=== PATIENT | male | born 1975 | race Caucasian/White ===

== ENCOUNTER 2019-06-26 12:16 | Inpatient (IN) | payer MEDICAID ==
[~2019-06-26] VITALS: Ht 170.2 cm; Wt 78.9 kg
[2019-06-26 12:18] VITALS: BP 127/73
--- NOTE | 2019-06-26 12:18 | NUR ---
PATIENT WHEELCHAIR ASSISTED TO BED 10.
[2019-06-26] MEDS ORDERED: METF500T2 PO (12:32)
--- NOTE | 2019-06-26 12:36 | NUR ---
DO JOSUÉ AT BEDSIDE
--- NOTE | 2019-06-26 12:43 | NUR ---
BIB FAMILY FROM HOME C/O ALOC, PER FAMILY PT HAS BEEN SICK WITH COLD SYMPTOMS X1 WEEK, WOKE UP THIS AM, ALTERTED, HOT TO TOUCH, NOT RESPONDING VERBALLY AT THIS TIME. BS 331 MD AWARE HX: DM RX: METFORMIN [place] DOSE OR FREQUENCY
[2019-06-26] MEDS ORDERED: IBUP-2213 PO (12:46)
[2019-06-26] MEDS ORDERED: NACL 0.9% 1,000 ML IV ONE (12:50)
[2019-06-26] MEDS ORDERED: VANCOMYCIN 1,000 MG in DEXTROSE 5% 250 ML IV ONE (12:50)
[2019-06-26] MEDS ORDERED: KETOROLAC 30 MG/ML VIAL IVP ONE (12:55)
--- NOTE | 2019-06-26 13:37 | NUR ---
PT LAYING IN BED, RR EVEN AND UNLABORED. TEMP 101, HR 105, VS NOTED, COOLING MEASURES INITIATED. PT LAYING WITH EYES CLOSED WITH FACIAL GRIMACING, MEDS ADMINISTERED ORDERED. ALL NEEDS MET AT THIS TIME.
[2019-06-26 13:47] LABS: BASOPHILS % (AUTO) 0.3 % (0.0-2.0); HEMATOCRIT 45.9 % (36-52); HEMOGLOBIN 15.5 g/dL (12.0-18.0); LYMPHOCYTES # (AUTO) 0.5 K/uL (2.0-11.5); LYMPHOCYTES % (AUTO) 10.6 % (20.5-51.1); MEAN CORPUSCULAR HEMOGLOBIN 31 pg (27-31); MEAN CORPUSCULAR HGB CONC 34 g/dL (33-37); MEAN CORPUSCULAR VOLUME 90.8 fL (80-94); MONOCYTES # (AUTO) 0.6 K/uL (0.8-1.0); MONOCYTES % (AUTO) 10.9 % (1.7-9.3); NEUTROPHILS % (AUTO) 78.2 % (42.2-75.2); PLATELET COUNT (AUTO) 157 K/uL (140-450); RED BLOOD CELL COUNT(AUTO) 5.05 MIL/uL (4.20-6.10); RED CELL DISTRIBUTION WIDTH 12.9 % (11.6-13.7); WHITE BLOOD COUNT (AUTO) 5.2 K/uL (4.8-10.8)
[2019-06-26 13:51] LABS: ANION GAP 24.5 (8-16); CARBON DIOXIDE 19.3 mmol/L (21-32); CHLORIDE 92 mmol/L (98-107); CREATININE 0.7 mg/dL (0.7-1.3); GFR ARICAN-AMERICAN 157 mL/min (>90); GLUCOSE 316 mg/dL (74-106); POTASSIUM 4.8 mmol/L (3.5-5.1); SODIUM SERUM 131 mmol/L (136-145); UREA NITROGEN, BLOOD 11 mg/dL (7-18)
[2019-06-26 13:58] LABS: ALBUMIN 3.9 g/dL (3.4-5.0); ASPARTATE AMINOTRANSFERASE 42 U/L (15-37); TOTAL BILIRUBIN 0.7 mg/dL (0.0-1.0)
[2019-06-26 13:59] LABS: ACETAMINOPHEN < 0.5 ug/ml (10-30); SALICYLATE < 2.8 mg/dL (2.8-20.0)
--- NOTE | 2019-06-26 14:05 | NUR ---
FLU (+)A, (-)B PER LAB NOTIFIED
[2019-06-26] MEDS ORDERED: OSELTAMIVIR PHOSPHATE 75 MG CAP PO ONE (14:30)
--- NOTE | 2019-06-26 14:45 | NUR ---
PT ADMITTED FROM ED. ARRIVED ON GURNEY AND SAFELY TRANSFERRED TO BED. RESPIRATIONS EVEN AND UNLABORED WITH NO SOB OR RESPIRATORY DISTRESS. IV 18G SITES IN LEFT AND RIGHT FA ARE CLEAN, DRY, AND INTACT. SKIN WARM AND DRY TO TOUCH. MRSA SWAB PERFORMED AND SENT TO LAB. ID BAND PLACED. PT CHANGED INTO YELLOW GOWN AND YELLOW SOCKS. APPROPRIATE SIGNS ARE PLACED. SAFETY MEASURES IN PLACE. WILL CONTINUE TO MONITOR.
[2019-06-26] MEDS ORDERED: MORPHINE SULFATE 2 MG/ML SYR IVP PRN (15:30)
[2019-06-26] MEDS ORDERED: NACL 0.9% 1,000 ML IV SCH (15:30)
[2019-06-26] MEDS ORDERED: ACETAMINOPHEN 325 MG TAB PO PRN (15:30)
[2019-06-26] MEDS ORDERED: HYDROcodone/APAP 5/325 MG 1 TAB TAB PO PRN (15:30)
[2019-06-26] MEDS ORDERED: ALBUTEROL SULFATE/IPRATROPIU 3 ML SOL IH PRN (15:30)
[2019-06-26] MEDS ORDERED: DOCUSATE SODIUM 100 MG GELCAP PO PRN (15:30)
[2019-06-26] MEDS ORDERED: DEXTROSE 50% 50 ML SYR IVP PRN (15:30)
[2019-06-26] MEDS ORDERED: ONDANSETRON 4 MG/2 ML VIAL IM/IVP PRN (15:30)
--- NOTE | 2019-06-26 15:45 | NUR ---
Patient will be admitted to care of Dr Brasher. Admited to tele room 116. Belongings list completed. Report to PARESH Watson.
[2019-06-26 16:16] LABS: MAGNESIUM 1.8 mg/dL (1.8-2.4); PHOSPHORUS 2.7 mg/dL (2.5-4.9); THYROID STIMULATING HORMONE 0.44 uIU/mL (0.34-3.74)
[2019-06-26] MEDS: BLOOD GLUCOSE MONITORING 1 DEV DEV FS SCH ×2 (16:30→21:14)
[2019-06-26 16:40] LABS: PROTHROMBIN TIME 9.7 secs (10.8-13.4)
--- NOTE | 2019-06-26 16:50 | NUR ---
PT RESTING IN BED WITH FAMILY AT BEDSIDE. RESPIRATIONS EVEN AND UNLABORED WITH NO SOB OR RESPIRATORY DISTRESS WHILE ON 3L NC. SKIN WARM AND DRY TO TOUCH. SAFETY MEASURES IN PLACE. WILL CONTINUE TO MONITOR.
[2019-06-26] MEDS ORDERED: OSELTAMIVIR PHOSPHATE 75 MG CAP ONE (17:42)
[2019-06-26] MEDS: DEXT 5% / NACL 0.9% 500 ML IV SCH ×2 (18:44→22:33)
[2019-06-26] MEDS: INSULIN LISPRO SLIDING SCALE 100 UNITS/ML VIAL SUBQ PRN ×2 (18:46→21:09)
--- NOTE | 2019-06-26 19:05 | NUR ---
ENDORSED TO NIGHTSHIFT NURSE. PT RESTING IN BED WITH FAMILY AT BEDSIDE. RESPIRATIONS EVEN AND UNLABORED WITH NO SOB OR RESPIRATORY DISTRESS WHILE ON 3L NC. SKIN WARM AND DRY TO TOUCH. SAFETY MEASURES IN PLACE. PT IS STABLE
--- NOTE | 2019-06-26 19:06 | NUR ---
RECEIVED REPORT FROM AM SHIFT NURSE. PATIENT ASLEEP IN BED. NO APPARENT DISTRESS NOTED. FAMILY AT BEDSIDE. WITH PIV ON RFA 18 RUNNING IVF AND LFA 18 SALINE LOCKED. REVIEWED PLAN OF CARE WITH FAMILY. VERBALIZED UNDERSTANDING. ON DROPLET PRECAUTIONS. OBSERVED AT ALL TIMES. WILL CONTINUE TO MONITOR.
[2019-06-26] MEDS: ALBUTEROL SULFATE/IPRATROPIU 3 ML SOL IH SCH (19:14)
[2019-06-26] MEDS ORDERED: PIPERACILLIN/TAZOBACTAM 3.375 GM VIAL IV ONE (19:36)
[2019-06-26] MEDS: PIPERACILLIN/TAZOBACTAM 3.375 GM in DEXTROSE 5% 50 ML IV SCH (19:43)
[2019-06-26 20:00] VITALS: BP 130/81
[2019-06-26] MEDS: OSELTAMIVIR PHOSPHATE 75 MG CAP PO SCH (21:02)
--- NOTE | 2019-06-26 21:05 | NUR ---
PATIENT AWAKE IN BED. DENIES PAIN NOR DISCOMFORT. NO APPARENT DISTRESS NOTED. WILL CONTINUE TO MONITOR.
--- NOTE | 2019-06-26 22:00 | NUR ---
PATIENT REQUESTING FOR SANDWICH BUT ON NPO DIET. NOTIFIED RESIDENT DR. RUANO TO ASK IF PATIENT READY TO ADVANCE DIET. WITH NEW DIET ORDER.
[2019-06-27] VITALS: BP 105/64
--- NOTE | 2019-06-27 00:02 | NUR ---
PATIENT AWAKE IN BED WATCHING TV. NO APPARENT DISTRESS NOTED. DENIES PAIN NOR DISCOMFORT. WILL CONTINUE TO MONITOR.
[2019-06-27] MEDS ORDERED: PIPERACILLIN/TAZOBACTAM 3.375 GM VIAL IV ONE ×2 (00:20→05:06)
[2019-06-27] MEDS: PIPERACILLIN/TAZOBACTAM 3.375 GM in DEXTROSE 5% 50 ML IV SCH ×5 (00:27→23:21)
[2019-06-27] MEDS: DEXT 5% / NACL 0.9% 500 ML IV SCH ×2 (00:47→03:37)
--- NOTE | 2019-06-27 01:50 | NUR ---
ROUNDS DONE. PATIENT ASLEEP IN BED. NO APPARENT DISTRESS NOTED. VISIBLE CHEST RISE AND FALL NOTED. WILL CONTINUE TO MONITOR.
--- NOTE | 2019-06-27 03:45 | NUR ---
CHECKS DONE. PATIENT ASLEEP IN BED. NO APPARENT DISTRESS NOTED. VISIBLE CHEST RISE AND FALL NOTED. BED ON LOW POSITION. CALL LIGHT WITHIN REACH. WILL CONTINUE TO MONITOR.
[2019-06-27 04:00] VITALS: BP 112/76
--- NOTE | 2019-06-27 05:40 | NUR ---
PATIENT AWAKE IN BED. DENIES PAIN NOR DISCOMFORT. BED ON LOW POSITION. NO APPARENT DISTRESS NOTED. CALL LIGHT WITHIN REACH. WILL CONTINUE TO MONITOR.
[2019-06-27] MEDS: INSULIN LISPRO SLIDING SCALE 100 UNITS/ML VIAL SUBQ PRN ×4 (05:44→20:16)
[2019-06-27] MEDS: BLOOD GLUCOSE MONITORING 1 DEV DEV FS SCH ×4 (06:31→20:17)
--- NOTE | 2019-06-27 06:37 | NUR ---
ROUNDS DONE. PATIENT AWAKE IN BED. DENIES PAIN NOR DISCOMFORT. NO APPARENT DISTRESS NOTED. WILL CONTINUE TO MONITOR. CALL LIGHT WITHIN REACH. BED ON LOW POSITION. WILL CONTINUE TO MONITOR. Addendum: 06/27/19 at 0642 by Sylvie Paul RN WILL ENDORSE TO NEXT SHIFT FOR CONTINUITY OF CARE.
[2019-06-27] MEDS: ALBUTEROL SULFATE/IPRATROPIU 3 ML SOL IH SCH ×3 (06:51→19:13)
--- NOTE | 2019-06-27 07:01 | NUR ---
RECEIVED PATIENT ON 2L NASAL CANNULA, PULSE OX SAT 96%. SCHEDULED BREATHING TREATMENT ADMINISTERED. TOLERATED TX WELL WITHOUT ADVERSE SIDE EFFECTS. NO ACUTE RESPIRATORY DISTRESS NOTED AT THIS TIME. WILL CONTINUE TO MONITOR.
--- NOTE | 2019-06-27 07:20 | NUR ---
RECEIVED REPORT FROM PARESH ELY. PT AWAKE AND ORIENTED X3. PT ON TELE MONITOR, RHYTHM IS SR. IV ON RT FA 18 GA RUNNING IVF PER ORDER. RESPIRATIONS EVEN AND UNLABORED ON O2 3L VIA N/C. ABD SOFT, ACTIVE BS. SKIN IS INTACT, WARM TO TOUCH. PT ON FALL RISK PRECAUTIONS, SAFETY MEASURES IN PLACE, CALL LIGHT WITHIN REACH. REVIEWED POC WITH PT, PT VERBALIZED UNDERSTANDING AND WILL NEED REINFORCEMENT.
[2019-06-27 07:46] LABS: BASOPHILS % (AUTO) 0.3 % (0.0-2.0); EOSINOPHILS % (AUTO) 0.2 % (0.0-4.0); HEMATOCRIT 41.1 % (36-52); HEMOGLOBIN 13.8 g/dL (12.0-18.0); LYMPHOCYTES # (AUTO) 1.5 K/uL (2.0-11.5); LYMPHOCYTES % (AUTO) 39.3 % (20.5-51.1); MEAN CORPUSCULAR HEMOGLOBIN 31 pg (27-31); MEAN CORPUSCULAR HGB CONC 34 g/dL (33-37); MEAN CORPUSCULAR VOLUME 91.3 fL (80-94); MONOCYTES # (AUTO) 0.5 K/uL (0.8-1.0); NEUTROPHILS # (AUTO) 1.7 K/uL (1.8-7.7); NEUTROPHILS % (AUTO) 47.2 % (42.2-75.2); PLATELET COUNT (AUTO) 142 K/uL (140-450); RED BLOOD CELL COUNT(AUTO) 4.51 MIL/uL (4.20-6.10); RED CELL DISTRIBUTION WIDTH 13.1 % (11.6-13.7); WHITE BLOOD COUNT (AUTO) 3.7 K/uL (4.8-10.8)
[2019-06-27 08:00] VITALS: BP 103/73
[2019-06-27 08:07] LABS: ANION GAP 16.4 (8-16); CARBON DIOXIDE 23.2 mmol/L (21-32); CREATININE 0.8 mg/dL (0.7-1.3); POTASSIUM 3.6 mmol/L (3.5-5.1)
[2019-06-27 08:22] LABS: MAGNESIUM 1.8 mg/dL (1.8-2.4); PHOSPHORUS 2.4 mg/dL (2.5-4.9)
[2019-06-27] MEDS: OSELTAMIVIR PHOSPHATE 75 MG CAP PO SCH ×2 (08:29→20:10)
--- NOTE | 2019-06-27 08:32 | NUR ---
PATIENT HAS BEEN SCREENED AND CATEGORIZED MODERATE NUTRITION RISK. PATIENT WILL BE SEEN WITHIN 3-5 DAYS OF ADMISSION. 06/29/19 07/01/[address]
[2019-06-27] MEDS: NACL 0.9% 1,000 ML IV SCH (08:45)
--- NOTE | 2019-06-27 08:45 | NUR ---
ADMINISTERED TAMIFLU AND HEPARIN PER ORDER, PT IS AWARE OF INDICATIONS AND POTENTIAL SIDE EFFECTS. ORAL TEMP AT 99.2, PT GIVEN COOL WASHCLOTH TO FOREHEAD. WILL CONTINUE TO MONITOR.
[2019-06-27 08:46] LABS: APPEARANCE,URINE CLEAR (CLEAR); BILIRUBIN,URINE NEGATIVE (NEGATIVE); BLOOD, URINE 1+ (NEGATIVE); COLOR,URINE YELLOW (YELLOW); LEUKOCYTE ESTERASE ,URINE NEGATIVE (NEGATIVE); NITRITE, URINE NEGATIVE (NEGATIVE); UGLUCOSE 3+ (NEGATIVE)
[2019-06-27 08:54] LABS: BARBITURATE, URINE NEG. ng/ml (NEG <=200); BENZODIAZEPINE, URINE NEG. ng/mL (NEG <=200); CANNABINOID, URINE NEG. ng/mL (NEG <=50); COCAINE, URINE NEG. ng/mL (NEG <=300); OPIATE, URINE NEG. ng/mL (NEG <=2000); PHENCYCLIDINE SCREEN,URINE NEG. ng/mL (NEG <=25)
--- NOTE | 2019-06-27 09:00 | NUR ---
FAMILY AT NURSING STATION, GIVEN UPDATE REGARDING PT'S CONDITION.
[2019-06-27 09:14] LABS: YEAST,URINE Rare /HPF (None Seen)
[2019-06-27 09:17] LABS: CHOL/HDL RATIO 6.8 (1-4.5)
[2019-06-27] MEDS ORDERED: SODIUM PHOS / POTASSIUM PHOS 1 PKT PDR PO SCH (10:17)
--- NOTE | 2019-06-27 11:30 | NUR ---
BLOOD SUGAR AT 299, PT HAS NO S/S OF HYPERGLYCEMIA. WILL ADMINISTER HUMALOG PER SLIDING SCALE.
[2019-06-27 12:00] VITALS: BP 112/69
--- NOTE | 2019-06-27 13:00 | NUR ---
PT SITTING UP IN BED HAVING LUNCH. FAMILY AT BEDSIDE. PT HAS NO SIGNS OF DISTRESS AT THIS TIME.
--- NOTE | 2019-06-27 13:57 | NUR ---
VISITORS AT BEDSIDE. PLACED PATIENT ON ROOM AIR, PULSE OX SAT 95%. SCHEDULED BREATHING TREATMENT ADMINISTERED. TOLERATED TX WELL WITHOUT ADVERSE SIDE EFFECTS. NO ACUTE RESPIRATORY DISTRESS NOTED AT THIS TIME. WILL CONTINUE TO MONITOR.
--- NOTE | 2019-06-27 14:50 | NUR ---
ORAL TEMPERATURE AT 98.6, PT IS AFEBRILE.
[2019-06-27] MEDS ORDERED: FLUCONAZOLE 100 MG TAB PO SCH (15:00)
[2019-06-27 16:00] VITALS: BP 109/73
--- NOTE | 2019-06-27 17:00 | NUR ---
ADMINISTERED ZOSYN PER ORDER, EXPLAINED INDICATION AND POTENTIAL SIDE EFFECTS OF MEDICATION TO PT AND FAMILY.
--- NOTE | 2019-06-27 19:20 | NUR ---
ENDORSED PT TO MANAGER RESOURCE NURSE ELLA. PT HAS NO SIGNS OF DISTRESS AT THIS TIME.
--- NOTE | 2019-06-27 19:21 | NUR ---
RECEIVED BEDSIDE REPORT FROM DAY RN. PT IS AAOX4. PRIMARILY YORUBA SPEAKING. PT ON DROPLET PRECAUTION FOR + INFLUENZA A. PT ON ROOM AIR. RESPIRATIONS ARE EQUAL AND UNLABORED. LUNG SOUNDS DIMINISHED AT BASE. SKIN IS INTACT. PT IS AMBULATORY WITH STANDBY ASSISTANCE. PT ON CCHO 60 DIET. IV ON R FA 18G NS AT 50ML/H IV ON L FA 18G SL. POC DISCUSSED WITH PT. CALL LIGHT IS WITHIN REACH. WILL CONTINUE TO MONITOR.
[2019-06-27 20:00] VITALS: BP 121/68
--- NOTE | 2019-06-27 20:10 | NUR ---
VSS. SAT GOOD IN RA 94%. JOSEFINA MEDICATIONS WERE GIVEN PER ORDERS. BG 240 ADMINISTERED INSULIN PER PROTOCOL. SNACK AT BEDSIDE. EXPLAINED REASON AND S/E OF ALL MEDICATIONS. ALL NEEDS MET AT THIS TIME. CALL LIGHT IS WITHIN REACH. WILL CONTINUE TO MONITOR.
[2019-06-27] MEDS ORDERED: ATORVASTATIN 20 MG TAB PO SCH (21:00)
--- NOTE | 2019-06-27 22:00 | NUR ---
PATIENT IS RESTING IN BED WATCHING TV. ALL NEEDS MET. CALL LIGHT IS WITHIN REACH
[2019-06-28] VITALS: BP 112/70
--- NOTE | 2019-06-28 | NUR ---
VITAL SIGNS ARE WITHIN NORMAL LIMITS. REMOVED IV ON L WRIST. IV CATH IS INTACT. MINIMAL BLEEDING. PT TOLERATED WELL. IV ON R FA INFUSING WELL. CALL LIGHT IS WITHIN REACH.
--- NOTE | 2019-06-28 02:30 | NUR ---
PATIENT IS SLEEPING WITH EYES CLOSED. CHEST RISE AND FALL. CALL LIGHT IS WITHIN REACH.
[2019-06-28 04:00] VITALS: BP 117/70
--- NOTE | 2019-06-28 04:00 | NUR ---
VITAL SIGNS ARE WITHIN NORMAL LIMITS. ALL NEEDS MET AT THIS TIME. CALL LIGHT IS WITHIN REACH
[2019-06-28] MEDS: PIPERACILLIN/TAZOBACTAM 3.375 GM in DEXTROSE 5% 50 ML IV SCH (05:01)
[2019-06-28] MEDS: NACL 0.9% 1,000 ML IV SCH (05:01)
[2019-06-28 06:10] LABS: T4 (THYROXINE) 7.1 ug/dL (4.5-12.0)
[2019-06-28] MEDS: INSULIN LISPRO SLIDING SCALE 100 UNITS/ML VIAL SUBQ PRN (06:27)
--- NOTE | 2019-06-28 06:27 | NUR ---
BG 191 ADMINISTERED INSULIN PER PROTOCOL. ALL NEEDS MET. CALL LIGHT IS WITHIN REACH. PT IS STABLE. WILL ENDORSE TO DAY RN.
[2019-06-28] MEDS: BLOOD GLUCOSE MONITORING 1 DEV DEV FS SCH (06:32)
[2019-06-28 07:10] LABS: BASOPHILS % (AUTO) 0.3 % (0.0-2.0); EOSINOPHILS % (AUTO) 0.4 % (0.0-4.0); HEMATOCRIT 41.1 % (36-52); HEMOGLOBIN 13.8 g/dL (12.0-18.0); LYMPHOCYTES # (AUTO) 1.3 K/uL (2.0-11.5); LYMPHOCYTES % (AUTO) 48.4 % (20.5-51.1); MEAN CORPUSCULAR HEMOGLOBIN 30 pg (27-31); MEAN CORPUSCULAR HGB CONC 34 g/dL (33-37); MEAN CORPUSCULAR VOLUME 90.4 fL (80-94); MONOCYTES # (AUTO) 0.4 K/uL (0.8-1.0); MONOCYTES % (AUTO) 13.1 % (1.7-9.3); NEUTROPHILS % (AUTO) 37.8 % (42.2-75.2); PLATELET COUNT (AUTO) 155 K/uL (140-450); RED BLOOD CELL COUNT(AUTO) 4.55 MIL/uL (4.20-6.10); RED CELL DISTRIBUTION WIDTH 13.1 % (11.6-13.7); WHITE BLOOD COUNT (AUTO) 2.7 K/uL (4.8-10.8)
[2019-06-28 07:16] LABS: CREATININE 0.8 mg/dL (0.7-1.3); POTASSIUM 4.7 mmol/L (3.5-5.1)
[2019-06-28 07:18] LABS: PHOSPHORUS 3.4 mg/dL (2.5-4.9)
--- NOTE | 2019-06-28 07:56 | NUR ---
SHIFT REPORT RECEIVED FROM STITCH BURNISHER NURSE. PT IS IN BED IN STABLE CONDITION. CALL LIGHT IN REACH.
[2019-06-28 08:00] VITALS: BP 105/74
[2019-06-28 08:11] LABS: ANION GAP 16.1 (8-16); CARBON DIOXIDE 24.6 mmol/L (21-32)
[2019-06-28] MEDS ORDERED: TAM75 PO (08:52)
[2019-06-28] MEDS ORDERED: METF500T2 PO (08:53)
[2019-06-28] MEDS ORDERED: LEVO750T2 PO (08:59)
[2019-06-28] MEDS ORDERED: FLUCONAZOLE 100 MG TAB PO SCH (09:00)
[2019-06-28] MEDS: OSELTAMIVIR PHOSPHATE 75 MG CAP PO SCH (09:12)
--- NOTE | 2019-06-28 09:30 | NUR ---
PT IS RESTING INBED INSTABLE CONDITION. FAMILY BE BEDSIDE CALL LIGHT IN REACH.
[2019-06-28] MEDS ORDERED: FLUC200T PO (09:52)
--- NOTE | 2019-06-28 11:16 | NUR ---
PT WAS DISCHARGED TODAY. PT WAS ALERT ANS AWAKE. PT WALKED WITH STEADY GAIT. NO COMPLAINS OF PAIN OR DISTRESS NOTED. IV REMOVED. CATHETER INTACT. NO ACTIVE BLEEDING FROM IV SITE. PT'S DISCHARGE INSTRUCTIONS GIVEN TO PATIENT. MEDICATIONS SENT TO PHARMACY. FLU VACCINE NOT GIVEN PER DR REQUEST. SKIN INTACT. PT'S BELONGINGS WITH PATIENT. FAMILY WITH PATIENT AT DISCHARGE. PT WILL F/U WITH PCP.
== END 2019-06-28 11:10 | disposition home or self-care (01) | DRG 720 ==
LOC: MED 12:16 → MTU 14:58
PROVIDERS: ADMIT General Practice; ATTEND General Practice
DX: A41.9 Sepsis, unspecified organism (principal); G93.41 Metabolic encephalopathy; J11.00 Influenza due to unidentified influenza virus with unspecified type of pneumonia; E87.8 Other disorders of electrolyte and fluid balance, not elsewhere classified; J18.9 Pneumonia, unspecified organism; E11.65 Type 2 diabetes mellitus with hyperglycemia; E78.5 Hyperlipidemia, unspecified; E87.1 Hypo-osmolality and hyponatremia; E83.39 Other disorders of phosphorus metabolism; E66.3 Overweight; Z68.27 Body mass index [BMI] 27.0-27.9, adult; Z90.49 Acquired absence of other specified parts of digestive tract
CPT/HCPCS: 36415; 36600; 70450; 71045; 80048; 80053; 80305; 81001; 82150; 82550; 82803; 82948; 83036; 83605; 83690; 83735; 83880; 84100; 84436; 84443; 84484; 85025; 85610; 85730; 87040; 87081; 87086; 87804; 93005; 94640; 96361; 96365; 96368; 96375; 99285; G0480; G0482; J1644; J1885; J2270; J2543; J7030; J7042; J7060; J7620; Q0092